=== PATIENT | male | born 1965 ===

== ENCOUNTER 2017-03-08 22:50 | Emergency (ER) | payer OTHER ==
[~2017-03-08] VITALS: Ht 160 cm; Wt 91.2 kg
[2017-03-08 22:54] VITALS: Ht 160 cm; Wt 91.2 kg
[2017-03-09] MEDS ORDERED: IBUPROFEN 800 MG TAB PO ONE (00:30)
[2017-03-09] MEDS ORDERED: IBUP800T25 PO (01:48)
[2017-03-09] MEDS ORDERED: HYDR-906 PO (01:53)
--- NOTE | 2017-03-09 02:02 | ERD ---
ER Documentation Chief Complaint Chief Complaint bib self, cc: right ankle pain from fall 2 weeks ago HPI 52-year-old male complaining of right big toe pain. Patient stated that 1 week ago he was jumping, but landed on his right big toe. He is able to walk but with pain. He took Tylenol and ibuprofen at home. 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 History of diabetes and hypertension. Denies any other injuries. ROS All systems reviewed and are negative except as per history of present illness. Medications Home Meds Active Scripts Hydrocodone/Acetaminophen ([place] 5-325 Tablet) 1 Each Tablet, 1 TAB PO Q6H Y for SEVERE PAIN LEVEL 7-10, #5 TAB Prov:PEREZ STALEY. [employer]W [employer]ADER 03/09/17 Ibuprofen* (Motrin*) 800 Mg Tab, 800 MG PO Q6H Y for PAIN AND OR ELEVATED TEMP, #30 TAB Prov:PEREZ STALEY. [employer] LEADER 03/09/17 Allergies Allergies: Coded Allergies: No Known Drug Allergies (Verified Allergy, Unknown, 03/09/17) PMhx/Soc History of Surgery: No Anesthesia Reaction: No Hx Cardiac Disorders: Yes (HTN) Hx Miscellaneous Medical Probl: Yes (DM) Hx Alcohol Use: No Hx Substance Use: No Hx Tobacco Use: No Smoking Status: Never smoker Physical Exam Vitals Vital Signs Date Time Temp Pulse Resp B/P Pulse Ox O2 Delivery O2 Flow Rate FiO2 03/08/17 22:54 98.1 82 18 135/81 100 Physical Exam General: Well-developed, well-nourished, conscious and coherent, in no distress Skin: Warm and dry without rash, good texture and turgor Head: Normocephalic without evidence of trauma Eyes: Sclera and conjunctivae normal; pupils equal, round, and reactive to light; extraocular movements are intact Chest: Normal AP diameter. Good expansion without retractions. Nontender. Lungs are clear to auscultate bilaterally with good tidal volume Heart: Regular rate and rhythm. No murmur, rub, or gallops heard Extremities: Right big toe erythematous, swollen, with slight ecchymosis. Decreased range of motion of the right big toe. Good strength bilaterally. No clubbing, cyanosis, or edema. Peripheral pulses are intact. Sensation intact Neuro: Alert and oriented 4, GCS 15. Cranial nerves grossly intact. Motor and sensory exams nonfocal. Moves all extremities. Speech clear. Gait normal Results 24 hrs Current Medications Medications (Trade) Dose Ordered Sig/Heather Route PRN Reason Start Time Stop Time Status Last Admin Dose Admin Ibuprofen (Motrin) 800 mg ONCE ONCE PO 03/09/17 00:30 03/09/17 00:31 DC 03/09/17 00:19 PROCEDURE: XR toe. CLINICAL INDICATION: Trauma TECHNIQUE: AP, lateral and oblique views of the right first toe was obtained. COMPARISON: There are no similar studies submitted for comparison. FINDINGS: There is an acute , slightly oblique fracture through the diaphysis of the first proximal phalanx. There is some moderate dorsal subluxation and angulation of the distal fragment. No osseous erosions are identified. The joint spaces are within normal limits. No radiopaque foreign bodies are seen. IMPRESSION: Acute fracture of the first proximal phalanx. The RPTAT: HIKT .Kalen Silva MD, MD Date Time Electronically viewed and signed by .Kalen Silva MD, MD on 03/09/2017 02:03 .T/ CC: PEREZ STALEY [employer] Procedures/MDM Well-appearing 52-year-old male present ED was right big toe pain 1 week after a fall. X-ray right big toe was obtained, which showed an oblique fracture of the proximal phalanx of the right big toe. I doubt cellulitis or septic joint. The area of injury was immobilized with amanda tape splint and ortho boot. Patient also provided crutches for ambulation.. Patient was noted to be comfortable and neurovascularly intact both before and after the immobilization. Patient is advised to follow-up with PCP for orthopedic referral. Patient appears well, stable for discharge and outpatient management. Medical decision making shared with patient and family. Education provided to patient and family. Patient and family expressed understanding of the plan. Medications on discharge: Ibuprofen, [place]. Follow-up: Primary care provider in 2-3 days or return to ED if worse. Disclaimer: Inadvertent spelling and grammatical errors are likely due to EHR/ dictation software use and do not reflect on the overall quality of patient care. Also, please note that the electronic time recorded on this note does not necessarily reflect the actual time of the patient encounter. Departure Diagnosis: Primary Impression: Fracture, toe Encounter type: initial encounter Toe: great toe Fracture type: closed Phalanx: proximal Fracture alignment: nondisplaced Laterality: right Qualified Code: S92.414A - Closed nondisplaced fracture of proximal phalanx of right great toe, initial encounter Condition: Stable Patient Instructions: Fracture, Toe [Closed] Referrals: [facility] YOU HAVE RECEIVED A MEDICAL SCREENING EXAM AND THE RESULTS INDICATE THAT YOU DO NOT HAVE A CONDITION THAT REQUIRES URGENT TREATMENT IN THE EMERGENCY DEPARTMENT. FURTHER EVALUATION AND TREATMENT OF YOUR CONDITION CAN WAIT UNTIL YOU ARE SEEN IN YOUR DOCTORS OFFICE WITHIN THE NEXT 1-2 DAYS. IT IS YOUR RESPONSIBILITY TO MAKE AN APPOINTMENT FOR FOLOW-UP CARE. IF YOU HAVE A PRIMARY DOCTOR --you should call your primary doctor and schedule an appointment IF YOU DO NOT HAVE A PRIMARY DOCTOR YOU CAN CALL OUR PHYSICIAN REFERRAL HOTLINE AT IF YOU CAN NOT AFFORD TO SEE A PHYSICIAN YOU CAN CHOSE FROM THE FOLLOWING [facility] [address] [facility]. [facility] [address] [facility]. [facility] [address] [facility] [facility] [address] [facility]. [facility] [address] [facility] [facility]. [address] Additional Instructions: Call your primary care doctor TOMORROW for an appointment during the next 2-3 days.See the doctor sooner or return here if your condition worsens before your appointment time. PEREZ STALEY NP Mar 09, 2017 02:02
== END 2017-03-09 02:52 | disposition home or self-care (01) ==
LOC: FTE 22:50
DX: S92.414A Nondisplaced fracture of proximal phalanx of right great toe, initial encounter for closed fracture (principal); I10 Essential (primary) hypertension; E11.9 Type 2 diabetes mellitus without complications; W18.39XA Other fall on same level, initial encounter; Y92.9 Unspecified place or not applicable
CPT/HCPCS: 73660